=== PATIENT | female | born 2000 | race Caucasian/White ===

== ENCOUNTER 2019-12-18 10:25 | Emergency (ER) | payer OTHER ==
[~2019-12-18] VITALS: Ht 167.6 cm; Wt 104.3 kg
--- NOTE | 2019-12-18 10:41 | NUR ---
Female cabin outfitter accompanied female patient for (DR Arellano).
[2019-12-18 10:42] VITALS: BP 125/73
--- NOTE | 2019-12-18 10:48 | NUR ---
Patient discharged to home in stable condition. Written and verbal after care instructions given. Patient verbalizes understanding of instructions. Stressed follow up or return to ER for worsening s/s.
== END 2019-12-18 10:48 | disposition home or self-care (01) ==
LOC: ER 10:25
DX: R51 Headache (principal); N60.82 Other benign mammary dysplasias of left breast; N64.4 Mastodynia
CPT/HCPCS: A4663